=== PATIENT | female | born 1975 ===

== ENCOUNTER → 2018-03-12 | Day surgery (SDC) | payer OTHER ==
[~2018-03-12] MED LIST: ATENOLOL25 MG PO; ATENOLOL50 MG PO; HYOSCYAMINE0.125 M1 SL; IMODIUM PO; OXYC1TAB9 PO; RESTORA CAPSUL1 EACH PO; SYNTHROID125 MCG PO; SYNTHROID137 MCG PO
== END | disposition home or self-care (01) ==
LOC: ADM 03-06 14:00 → AMB-ENDOS 08:30
DX: K57.30 Diverticulosis of large intestine without perforation or abscess without bleeding (principal); K64.2 Third degree hemorrhoids

== ENCOUNTER 2019-04-22 09:52 | Day surgery (SDC) | payer OTHER | END 2019-04-22 14:12 | disposition home or self-care (01) | LOC: AMB-ENDOS 09:52 | DX: R19.8 Other specified symptoms and signs involving the digestive system and abdomen (principal) ==

== ENCOUNTER 2020-05-11 15:47 | Outpatient (CLI) | payer OTHER | END 2020-05-11 16:36 | disposition home or self-care (01) | LOC: LAB 15:47 | PROVIDERS: ATTEND Internal Medicine Hematology & Oncology | DX: C20 Malignant neoplasm of rectum (principal); D50.8 Other iron deficiency anemias; C78.02 Secondary malignant neoplasm of left lung; D50.0 Iron deficiency anemia secondary to blood loss (chronic); I10 Essential (primary) hypertension; N39.0 Urinary tract infection, site not specified; R97.0 Elevated carcinoembryonic antigen [CEA]; Z93.2 Ileostomy status; R94.5 Abnormal results of liver function studies ==

== ENCOUNTER 2020-06-12 07:41 | Outpatient (CLI) | payer OTHER | END 2020-06-12 15:00 | disposition home or self-care (01) | LOC: LAB 07:41 | PROVIDERS: ATTEND Internal Medicine Hematology & Oncology | DX: C20 Malignant neoplasm of rectum (principal); C78.02 Secondary malignant neoplasm of left lung; D50.0 Iron deficiency anemia secondary to blood loss (chronic); I10 Essential (primary) hypertension; N39.0 Urinary tract infection, site not specified; R97.0 Elevated carcinoembryonic antigen [CEA]; Z93.2 Ileostomy status; R94.5 Abnormal results of liver function studies; D50.8 Other iron deficiency anemias; R97.8 Other abnormal tumor markers; R77.8 Other specified abnormalities of plasma proteins; D47.2 Monoclonal gammopathy; R76.0 Raised antibody titer; M32.8 Other forms of systemic lupus erythematosus ==

== ENCOUNTER 2024-05-05 08:00 | Outpatient (CLI) | payer OTHER ==
[~2024-05-05] VITALS: Ht 154.9 cm; Wt 95.3 kg
[2024-05-05 09:59] LABS: PH,URINE 5.5 (5.0-8.0); URINE APPEARANCE Clear; URINE BILIRRUBIN Negative (NEGATIVE); URINE BLOOD Negative; URINE COLOR Yellow; URINE GLUCOSE Negative (NEGATIVE); URINE LEUKOCYTE Negative; URINE NITRATE Negative; URINE PROTEIN Negative (NEGATIVE); URINE UROBILINOGEN 0.2 E.U./dl
[2024-05-05 10:08] LABS: URINE BACTERIA 95.7 uL (0.0-1933); URINE EPITHELIAL CELLS 3.5 uL (0.0-38.8); URINE WBC 4.3 uL (0.0-23.2)
[2024-05-05 10:10] LABS: HEMATOCRIT 40.3 % (36.0-45.00); HEMOGLOBIN 13.5 g/dL (12.0-15.00); MEAN CELL VOLUME 92.3 fL (80.00-100.00); MEAN CORPUSCULAR HEMOGLOBIN 30.9 pg (27.00-32.0); MEAN CORPUSCULAR HGB CONC 33.5 g/dl (32.0-36.0); RED BLOOD COUNT 4.37 M/uL (4.00-6.00); RED CELL DISTRIBUTION WIDTH 12.9 % (11.5-14.5)
[2024-05-05 10:13] LABS: URINE RBC 0.3 uL (0.0-20.8)
[2024-05-05 10:13] LABS: PLATELET COUNT 130 K/uL (150-450)
[2024-05-05 10:25] LABS: INR 1.01; PARTIAL THROMBOPLASTIN TIME 27.3 SECONDS (22.0-34.0); PROTHROMBIN TIME 10.6 SECONDS (9.0-11.5)
[2024-05-05 10:34] LABS: ALBUMIN 3.8 gm/dL (3.4-5.0); BILIRUBIN TOTAL 0.54 mg/dL (0.3-1.2); CALCIUM 9.2 mg/dL (8.5-10.1); CREATININE SERUM 0.65 mg/dL (0.55-1.02); GFR 97.28; GLOBULINA 3.6 G/DL (2.4-3.5); POTASSIUM 4.02 mEq/L (3.5-5.1); TOTAL PROTEIN 7.4 gm/dL (6.4-8.2)
[2024-05-05 11:13] LABS: TSH 0.292 uIU/mL (0.358-3.74)
== END 2024-05-05 08:01 | disposition home or self-care (01) ==
LOC: RAD 08:00
PROVIDERS: ATTEND Specialist
DX: C20 Malignant neoplasm of rectum (principal); I10 Essential (primary) hypertension; E03.8 Other specified hypothyroidism

== ENCOUNTER 2024-05-25 10:36 | Outpatient (CLI) | payer OTHER ==
[2024-05-25 11:40] LABS: MYCOPLASMA PNEUMONIAE IGM REACTIVE (NO REACTIVE)
== END 2024-05-25 10:37 | disposition home or self-care (01) ==
LOC: LAB 10:36
PROVIDERS: ATTEND Internal Medicine Hematology & Oncology
DX: C20 Malignant neoplasm of rectum (principal); C78.02 Secondary malignant neoplasm of left lung; D50.0 Iron deficiency anemia secondary to blood loss (chronic); I10 Essential (primary) hypertension; N39.0 Urinary tract infection, site not specified; R97.0 Elevated carcinoembryonic antigen [CEA]; Z93.2 Ileostomy status; R94.5 Abnormal results of liver function studies

== ENCOUNTER 2024-11-01 05:17 | Day surgery (SDC) | payer OTHER ==
[2024-10-18 11:52] LABS: URINE APPEARANCE Clear; URINE BILIRRUBIN Negative (NEGATIVE); URINE BLOOD Negative; URINE COLOR Yellow; URINE GLUCOSE Negative (NEGATIVE); URINE KETONE Negative (NEGATIVE); URINE LEUKOCYTE Negative; URINE NITRATE Negative; URINE PROTEIN Negative (NEGATIVE); URINE UROBILINOGEN 0.2 E.U./dl
[2024-10-18 11:53] LABS: HEMATOCRIT 41.7 % (36.0-45.00); HEMOGLOBIN 14.4 g/dL (12.0-15.00); MEAN CORPUSCULAR HEMOGLOBIN 31.9 pg (27.00-32.0); MEAN CORPUSCULAR HGB CONC 34.6 g/dl (32.0-36.0); RED BLOOD COUNT 4.53 M/uL (4.00-6.00); RED CELL DISTRIBUTION WIDTH 13.6 % (11.5-14.5)
[2024-10-18 11:56] LABS: URINE BACTERIA 129.7 uL (0.0-1933); URINE EPITHELIAL CELLS 2.4 uL (0.0-38.8); URINE RBC 2.4 uL (0.0-20.8)
[2024-10-18 12:00] LABS: PLATELET COUNT 125 K/uL (150-450)
[2024-10-18 12:10] LABS: INR 1.02; PARTIAL THROMBOPLASTIN TIME 27.5 SECONDS (22.0-34.0); PROTHROMBIN TIME 11.1 SECONDS (9.0-11.5)
[2024-10-18 12:42] LABS: ALBUMIN 3.8 gm/dL (3.4-5.0); BILIRUBIN TOTAL 0.48 mg/dL (0.3-1.2); CALCIUM 9.4 mg/dL (8.5-10.1); CREATININE SERUM 0.72 mg/dL (0.55-1.02); GFR 86.09; POTASSIUM 4.15 mEq/L (3.5-5.1); TOTAL PROTEIN 7.8 gm/dL (6.4-8.2)
[2024-11-01] MEDS ORDERED: BUPIVACAINE HCL 30 ML VIAL IJ ONE (08:00)
[2024-11-01] MEDS ORDERED: LIDOCAINE HCL 1%/EPINEPHRINE 20ML VIAL IJ ONE (08:00)
[2024-11-01] MEDS ORDERED: CEFAZOLIN SODIUM 1,000 MG VIAL IV ONE (08:00)
[2024-11-01] MEDS ORDERED: TRAM1TAB98 PO (09:52)
== END 2024-11-01 10:45 | disposition home or self-care (01) ==
LOC: CIR.AMB 05:17
PROVIDERS: ATTEND Surgery
DX: T82.594A Other mechanical complication of infusion catheter, initial encounter (principal); I87.2 Venous insufficiency (chronic) (peripheral); C34.12 Malignant neoplasm of upper lobe, left bronchus or lung